=== PATIENT | male | born 1930 | race Two or more races ===

== ENCOUNTER 2021-09-09 20:08 | Emergency (ER) | payer OTHER ==
[2021-09-09 20:22] VITALS: PULSE 75; TEMP 98; BMI 33.7
[2021-09-10 02:29] VITALS: BP 130/72
== END 2021-09-10 02:45 | disposition short-term general hospital (02) ==
LOC: JER 20:08
DX: H02.813 Retained foreign body in right eye, unspecified eyelid (principal); Z77.098 Contact with and (suspected) exposure to other hazardous, chiefly nonmedicinal, chemicals
CPT/HCPCS: 0241U-QW; 99283-25